=== PATIENT | male | born 1970 | race Caucasian/White ===

== ENCOUNTER → 2018-06-16 18:41 | Outpatient (CLI) | payer OTHER, SELFPAY ==
--- NOTE | 2018-06-16 18:44 | DI.MRI.S_ITS ---
PROCEDURE: MR LUMBAR SPINE WO CON INDICATIONS: LUMBAR SPINE PAIN TECHNIQUE: Noncontrast sagittal T1 spin echo and T2 fast echo, sagittal STIR, axial T1 and T2 fast spin echo through the lumbar spine. In cases with scoliosis, additional coronal T2 fast spin echo may be performed. COMPARISON: None. FINDINGS: Image quality: Excellent. Alignment and Curvature: There is normal bony alignment. Bone Marrow: Marrow is of normal overall signal. No acute vertebral body compression fractures. Spinal Cord: Conus medullaris terminates at the L1 level. Visualized cord demonstrates normal signal and size. Paraspinous Soft Tissues: No paravertebral masses. L1-L2: Normal appearance. L2-L3: Normal appearance. L3-L4: Normal appearance. L4-L5: There is disc desiccation and broad-based disc bulge with bilateral facet arthrosis causing mild central canal stenosis and mild bilateral neuroforaminal narrowing. Bulging disc likely contacting exiting right L4 nerve root at this level. L5-S1: Bilateral facet arthrosis is seen with no significant canal stenosis or neuroforamina narrowing. IMPRESSION: 1. Broad-based disc bulge and bilateral facet arthrosis L4-5 level with mild central canal stenosis and right worse than left bilateral neuroforaminal narrowing. Bulging disc likely contacting exiting right L4 nerve root. 2. No marrow edema. No compression fracture or spondylolisthesis. Dictated by: Jason Cross M.D. on 06/17/2018 at 11:32 Approved by: Jason Cross M.D. on 06/17/2018 at 11:37
== END ==
PROVIDERS: Visit Provider Orthopaedic Surgery Orthopaedic Surgery of the Spine
DX: M51.26 Other intervertebral disc displacement, lumbar region (principal); M47.816 Spondylosis without myelopathy or radiculopathy, lumbar region; M47.817 Spondylosis without myelopathy or radiculopathy, lumbosacral region; M48.061 Spinal stenosis, lumbar region without neurogenic claudication
CPT/HCPCS: 72148